=== PATIENT | female | born 1970 | race Caucasian/White ===

== ENCOUNTER 2018-02-11 15:53 | Emergency (ER) | payer MEDICAID ==
[~2018-02-11] VITALS: Ht 152.4 cm; Wt 54.4 kg
[~2018-02-11 15:53] MED LIST: CLIN300C6 PO; IBUP-974 PO; KEP500 PO; PHEN100C4 PO; SACC250C1 PO
[2018-02-11 15:59] VITALS: BP 100/65
--- NOTE | 2018-02-11 16:05 | NUR ---
PT COMES TO ED REQUESTING MED REFILL OF HER SZ MEDICATION - DANE LÓPEZANTIN. PT DENIES ANY SZ LIKE ACTIVITY RECENTLY. STATES SHE HAS NOT BEEN ABLE TO SEE HER PCP BECAUSE OF IMMIGTRATION ISSUES.
[2018-02-11 16:28] VITALS: BP 115/75
--- NOTE | 2018-02-11 16:29 | NUR ---
Patient discharged with v/s stable. Written and verbal after care instructions given and explained. Patient alert, oriented and verbalized understanding of instructions. Ambulatory with steady gait. All questions addressed prior to discharge. ID band removed. Patient advised to follow up with PMD. Rx of SARAH LÓPEZ given. Patient educated on indication of medication including possible reaction and side effects. Opportunity to ask questions provided and answered.
== END 2018-02-11 16:29 | disposition home or self-care (01) ==
LOC: MED 15:53
DX: G40.909 Epilepsy, unspecified, not intractable, without status epilepticus (principal); Z46.0 Encounter for fitting and adjustment of spectacles and contact lenses
CPT/HCPCS: 99283

== ENCOUNTER 2018-06-01 12:45 | Emergency (ER) | payer MEDICAID ==
[~2018-06-01] VITALS: Ht 152.4 cm; Wt 57.2 kg
[2018-06-01 12:50] VITALS: BP 115/76
--- NOTE | 2018-06-01 12:54 | NUR ---
PT AMBULATED TO ED BED 11, REPORT TO SHAKIR DOMINGUEZ
--- NOTE | 2018-06-01 13:05 | NUR ---
48f bib self with c/o medication refill Keppra 750mg and Dilatin 100mg. Patient also reports of intermittnet dizziness upon sitting up, intermittent shakiness, and nausea. Patient denies any cp, sob, or v/d. Pt is aox4 to person, place, sitaution, and time. Clear speech with full sentences. RR are even and unlabored. Patient changed into gown. Pt to pulse ox, pulse, and bp monitoring. All needs met at this time. Will continue to monitor.
--- NOTE | 2018-06-01 13:42 | NUR ---
Patient discharged with v/s stable. Patient denies any dizziness or shakiness at this time. Written and verbal after care instructions given and explained. Patient alert, oriented and verbalized understanding of instructions. Ambulatory with steady gait. All questions addressed prior to discharge. ID band removed. Patient advised to follow up with PMD. Rx of Dilantin 100mg and Keppra 750mg given. Patient educated on indication of medication including possible reaction and side effects. Opportunity to ask questions provided and answered.
[2018-06-01 13:44] VITALS: BP 101/73
== END 2018-06-01 13:42 | disposition home or self-care (01) ==
LOC: MED 12:45
DX: R56.9 Unspecified convulsions (principal); Z76.0 Encounter for issue of repeat prescription; Z79.899 Other long term (current) drug therapy
CPT/HCPCS: 82948; 99283